=== PATIENT | male | born 1975 | race Caucasian/White ===

== ENCOUNTER 2020-03-15 06:23 | Day surgery (SDC) | payer OTHER ==
[2020-03-14 13:47] VITALS: BMI 35.3
[2020-03-15] MEDS ORDERED: Midazolam HCl 2 mg/2 ml Vial ONE (08:27)
[2020-03-15] MEDS ORDERED: Fentanyl 100 MCG/2 ML VIAL ONE (08:27)
[2020-03-15] MEDS ORDERED: EPINEPHrine 1 MG/ML AMP ONE ×2 (08:31)
[2020-03-15] MEDS ORDERED: Hydrocodone-Acetamin 15 ML UDCUP ONE (11:19)
[2020-03-15] MEDS ORDERED: Dexamethasone 20 MG/5 ML VIAL ONE (12:33)
[2020-03-15] MEDS ORDERED: Glycopyrrolate 0.2 MG/ML 5 ML SYRINGE ONE (12:33)
[2020-03-15] MEDS ORDERED: Rocuronium Bromide 10 MG/ML (10ML VIAL) ONE (12:33)
[2020-03-15] MEDS ORDERED: Lidocaine 1% PF 5 ML VIAL ONE (12:33)
[2020-03-15] MEDS ORDERED: Ondansetron PF 4 MG/2 ML Vial ONE (12:33)
[2020-03-15] MEDS ORDERED: PHENYLEPHRINE-NS 100 MCG/ML 10 ML SYRINGE ONE (12:33)
[2020-03-15] MEDS ORDERED: PROPOFOL 200 MG/20 ML VIAL ONE (12:33)
--- NOTE | 2020-03-16 13:02 | OP ---
DATE OF PROCEDURE: 03/15/2020 PREOPERATIVE DIAGNOSES: Left true vocal fold nodule, dysphonia. POSTOPERATIVE DIAGNOSES: Left true vocal fold nodule, dysphonia. PROCEDURES PERFORMED: Microscopic direct laryngoscopy with telescope and submucosal resection of true vocal fold nodule. PERMIT: Procedures, benefits, and risks including those of bleeding, infection, injury from anesthesia, allergic reaction, scarring and hoarseness necessitating revision or repair and alternatives were reviewed with the patient and family, who expressed understanding of the information and consent form was signed and witnessed, and a paper copy of the consent form is available for review in the paper chart. INDICATIONS FOR PROCEDURE: This is a 44-year-old male patient presenting to the clinic with longstanding hoarseness and dysphonia. After flexible laryngoscopy was performed in the clinic, a phonating surface left true vocal fold mass was identified and noted to be obstructing the max glottitis during adduction and phonating times, and the patient is now brought to the operating room for operative intervention. 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 FINDINGS: Left submucosal nodule of the left true vocal fold phonating surface. DESCRIPTION OF OPERATION: The patient was brought to the operating room and laid supine on the operating room table. After general endotracheal anesthesia was administered with a microlaryngeal tube, the bed was turned 90 degrees to the left and a dental guard was placed over the patient's teeth as well as protective eye coverings, and surgical towels were placed and draped over the patient. At this point, an operative laryngoscope was brought into place with the light source and used to illuminate and to suspend the larynx with the help of suspension Archer tray. The larynx was then evaluated with an endoscope and the anterior location of the larynx made evaluation of the true vocal fold phonating surface. Nodule was difficult to identify, thus the 0-degree telescope was changed to an angled 30-degree telescope and anterior pressure on the trachea brought the mass into view and then an up-biting scissors was used to make an incision on the superior and lateral aspect of the mass and a submucosal pocket was developed using both blunt and sharp dissection. After this was completed, a cupped forceps was used to remove the mass and then to send it for tissue pathology. At this point, the suction was then used to replace the mucosal flap over the surgical site. The surgical site was roughly 5 mm in diameter. After this was completed, there was no bleeding. However, the subglottis was evaluated with the telescope and suctioned clear of any secretions and after this was performed, the telescope and all surgical instruments were removed and the laryngoscope was removed. The dental guard was taken off the patient's teeth. The protective dental guards were removed and the patient's oral cavity, mouth, lips, tongue, floor of mouth, gums and teeth were evaluated and no damage was seen. The patient tolerated the procedure well, and the patient was turned over to Anesthesia for emergence. Job ID: [id number] [facility]
== END 2020-03-15 12:20 | disposition home or self-care (01) ==
LOC: SDC 06:23
PROVIDERS: ATTEND Student in an Organized Health Care Education/Training Program
PROC: 0CBV8ZZ Excision of Left Vocal Cord, Via Natural or Artificial Opening Endoscopic (ICD-10-PCS; principal; 2020-03-15)
DX: J38.1 Polyp of vocal cord and larynx (principal); E66.9 Obesity, unspecified; Z68.35 Body mass index [BMI] 35.0-35.9, adult; Z79.899 Other long term (current) drug therapy; Z87.891 Personal history of nicotine dependence
CPT/HCPCS: 88305; J0171; J1100; J2250; J2405; J2704; J3010